=== PATIENT | female | born 2000 | race Two or more races ===

== ENCOUNTER 2024-12-01 15:15 | Emergency (ER) | payer MEDICAID, OTHER ==
[~2024-12-01] VITALS: Ht 160 cm; Wt 86.2 kg
[2024-12-01 15:17] VITALS: TEMP 98.4
[2024-12-01 15:26] VITALS: BP 147/71; PULSE 99; RESP 16; O2SAT 100
[2024-12-01] MEDS ORDERED: METH4PAK PO (16:02)
[2024-12-01] MEDS ORDERED: CYCL-837 PO (16:02)
--- NOTE | 2024-12-01 16:03 | ED.PDOC ---
History of Present Illness HPI Comments When 4-year-old female complaining of left-sided jaw pain x1 week. States she has a history of TMJ. Has been seen by ENT but referred back to [facility]. Has not had wisdom teeth pulled yet states she was in dealing with a TMJ issue since she was 9. Over the last four years has been having more intense pain. Today she says she feels a small ball behind her ear. Having neck pain that radiates up to her scalp. Has been taking ibuprofen and Tylenol with little relief. No injury to the area. No fever no chills Chief Complaint: jaw pain Time Seen by MD: 15:31 Reviewed Notes: Nurses Notes Allergies: Coded Allergies: Shrimp Flavor (Verified Allergy, Unknown, 12/01/24) Information Source: Patient Mode of Arrival: Ambulatory Past Medical History PAST MEDICAL HISTORY: Denies Surgical History: Denies all surgeries YARD DEMURRAGE CLERK History: No Pertinent YARD DEMURRAGE CLERK History Constitutional: denies: chills, diaphoresis, fatigue, fever, malaise, sweats, weakness, others EENTM: reports: ear pain, mouth pain; denies: blurred vision, double vision, ear bleeding, ear discharge, ear drainage, ear ringing, eye pain, eye redness, hearing loss, mouth swelling, nasal discharge, nose bleeding, nose congestion, nose pain, photophobia, tearing, throat pain, throat swelling, voice changes, others Respiratory: denies: cough, hemoptysis, orthopnea, SOB at rest, shortness of breath, SOB with excertion, stridor, wheezing, others Cardiovascular: denies: chest pain, dizzy spells, diaphoresis, Dyspnea on exertion, edema, irregular heart beat, left arm pain, lightheadedness, palpitations, PND, syncope, others Gastrointestinal: denies: abdomen distended, abdominal pain, blood streaked bowels, constipated, diarrhea, dysphagia, difficulty swallowing, hematemesis, melena, nausea, poor appetite, poor fluid intake, rectal bleeding, rectal pain, vomiting, others Genitourinary: denies: abnormal vagina bleeding, burning, dyspareunia, dysuria, flank pain, frequency, hematuria, incontinence, pain, , vagina discharge, urgency, others Neurological: denies: dizziness, fainting, headache, left sided numbness, left sided weakness, numbness, paresthesia, pre-existing deficit, right sided numbness, right sided weakness, seizure, speech problems, tingling, tremors, weakness, others Musculoskeletal: denies: back pain, gout, joint pain, joint swelling, muscle pain, muscle stiffness, neck pain, others Integumetry: denies: bruises, change in color, change in hair/nails, dryness, laceration, lesions, lumps, rash, wounds, others Allergic/Immunocompromised: denies: Difficulty Healing, Frequent Infections, Hives, Itching, others Hematologic/Lymphatic: denies: anemia, blood clots, easy bleeding, easy bruising, swollen glands, others Physical Exam General Appearance: No Apparent Distress, Normal HEENT: Normal ENT Inspection, Pharynx Normal, TMs Normal, Other (Postauricular lymph node mildly inflamed on the left side. Limited range of motion in Anthony due to pain.) Neck: Full Range of Motion, Non-Tender, Normal, Normal Inspection Respiratory: Chest Non-Tender, Lungs Clear, No Accessory Muscle Use, No Respiratory Distress, Normal Breath Sounds Cardiovascular: No Edema, No JVD, No Murmur, No Gallop, Normal Peripheral Pulses, Regular Rate/Rhythm Breast Exam: Deferred Gastrointestinal: No Organomegaly, Non Tender, No Pulsatile Mass, Normal Bowel Sounds, Soft Genitalia: Deferred Pelvic: Deferred Rectal: Deferred Extremities: No calf tenderness, Normal capillary refill, Normal inspection, Normal range of motion, Non-tender, No pedal edema Musculoskeletal : Apperance: Normal Neurologic: Alert, formula clerk II-XII nml as Tested, No Motor Deficits, Normal Affect, Normal Mood, No Sensory Deficits Cerebellar Function: Normal Reflexes: Normal Skin: Dry, Normal Color, Warm Lymphatic: No Adenopathy Was a procedure done? Was a procedure done?: No Differential Dx Considerations may include: Otitis media, otitis externa, TMJ, jaw dislocation. X-Ray, Labs, Meds, VS Vital Signs Date Time Temp Pulse Resp B/P (MAP) Pulse Ox O2 Delivery O2 Flow Rate FiO2 12/01/24 15:26 98.4 99 16 147/71 (96) 100 X-Ray, Labs, Meds, VS Comment Imaging: X-rays and CT scans were reviewed and interpreted by this provider, imaging shows no fractures and no pathological disease. Pending radiology review. Laboratory: Labs reviewed and interpreted by this provider. No significant abnormalities noted. Patient has prior medical visits reviewed. Med reconciliation performed Vital signs reviewed Time of 1ST Reevaluation: 16:03 Reevaluation 1ST: Improved Patient Education/Counseling: Diagnosis, Treatment, Need For Follow Up (Patient advised she will need to follow up with her ENT specialist for further evaluation. Patient was offered Toradol on Solu-Medrol in office but declined. Follow up in the emergency department if symptoms worsen in the next 48 hours.) Family Education/Counseling: Diagnosis, Treatment Departure 1 Departure Time of Disposition: 15:59 Impression: Primary Impression: TMJ (temporomandibular joint syndrome) Disposition: 01 HOME / SELF CARE / HOMELESS Condition: Stable e-Prescriptions Methylprednisolone (Medrol Dosepak) 4 Mg Nigel 4 MG PO UD, #21 TAB UAD Prov: AIDEE MURRAY 12/01/24 Cyclobenzaprine Hcl (Cyclobenzaprine Hcl) 5 Mg Tab 1 TAB PO TID PRN, #40 TAB Prov: AIDEE MURRAY 12/01/24 Discharged With: Self Critical Care Note Critical Care Time?: No Stability Stability form required: No Heart Score Heart Score: Heart Score Response (Comments) Value History N/A 0 EKG N/A 0 Age N/A 0 Risk Factors N/A 0 Troponin N/A 0 Total 0 AIDEE MURRAY Dec 01, 2024 16:03
== END 2024-12-01 16:16 | disposition home or self-care (01) ==
LOC: ER 15:15
DX: M26.602 Left temporomandibular joint disorder, unspecified (principal); Z91.013 Allergy to seafood